=== PATIENT | female | born 1990 | race African-American/Black ===

== ENCOUNTER 2018-07-03 13:34 | Emergency (ER) | payer MEDICAID, SELFPAY | END 2018-07-03 15:00 | disposition home or self-care (01) | LOC: SCSER 13:34 | DX: M54.5 Low back pain (principal); F17.210 Nicotine dependence, cigarettes, uncomplicated | CPT/HCPCS: 99281 ==

== ENCOUNTER 2021-11-05 09:29 | Emergency (ER) | payer MEDICAID, OTHER ==
[2021-11-05] MEDS ORDERED: Morphine 4 MG/ML VIAL ONE (10:32)
[2021-11-05] MEDS ORDERED: Ketorolac Tromethamine 30 MG/ML VIAL ONE (10:32)
== END 2021-11-05 11:05 | disposition home or self-care (01) ==
LOC: ERS 09:29
DX: M54.32 Sciatica, left side (principal)
CPT/HCPCS: 96372; 99283; J1885; J2270

== ENCOUNTER 2024-12-31 19:34 | Emergency (ER) | payer OTHER, SELFPAY ==
[2024-12-31] MEDS ORDERED: levETIRAcetam 500 MG (5 mL) VIAL ONE (20:05)
[2024-12-31 20:13] LABS: #Basophils 0.03 10x3/uL (0.0-0.2); #Eosinophils 0.25 10x3/uL (0.0-0.7); #Monocytes 0.47 10x3/uL (0.11-0.59); #Neutrophils 5.09 10x3/uL (1.40-6.50); %Basophils 0.3 % (0.0-1.0); %Eosinophils 2.7 % (0.0-10.0); %Lymphocytes 37.5 % (21.0-51.0); %Monocytes 5.0 % (0.0-10.0); %Neutrophils 54.2 % (42.0-75.0); Hematocrit 27.1 % (36.0-47.0); Hemoglobin 8.3 g/dL (12.0-16.0); Mean Corpuscular Hemoglobin 22.5 pg (27.0-31.0); Mean Corpuscular Volume 73.4 fL (78.0-98.0); Platelet Count 384 10x3/uL (130-400); Red Blood Cell (RBC) Count 3.69 mill/uL (4.20-5.40); White Blood Cell (WBC) Count 9.39 10x3/uL (4.8-10.8)
[2024-12-31 20:19] LABS: BHCG - Serum Negative (NEGATIVE); Pregs Control Background? CLEAR/WHITE (CLR/WHITE); Pregs Control Bar Appear? YES (CONTROL BAR)
[2024-12-31 20:29] LABS: ALT (SGPT) 13 U/L (Less than 34); AST (SGOT) 22 U/L (11-34); Albumin 3.8 g/dL (3.1-4.5); Alkaline Phosphatase 87 U/L (40-110); Anion Gap 14 mmol/L (10-20); BUN (Urea Nitrogen) 4 mg/dL (7.0-18.7); Bilirubin, Total 0.4 mg/dL (0.3-1.2); Calc. Creatinine Clearance 0 mL/min (70-130); Calcium 8.6 mg/dL (7.8-10.44); Carbon Dioxide 22 mmol/L (22-29); Chloride 107 mmol/L (98-107); Globulin 3.6 g/dL (2.4-3.5); Glucose 102 mg/dL (70-105); Potassium 3.3 mmol/L (3.5-5.1); Sodium 140 mmol/L (136-145)
[2024-12-31 20:31] LABS: Troponin I Less than 0.010 ng/mL (< 0.028)
== END 2024-12-31 21:23 | disposition home or self-care (01) ==
LOC: ERS 19:34
DX: R56.9 Unspecified convulsions (principal); E87.6 Hypokalemia; D50.9 Iron deficiency anemia, unspecified
CPT/HCPCS: 70450; 80053; 84146; 84484; 84703; 85025; 93005; 96374; J1953